=== PATIENT | female | born 1990 | race African-American/Black ===

== ENCOUNTER 2016-03-02 13:08 | Emergency (ER) | payer OTHER ==
[~2016-03-02] VITALS: Ht 185.4 cm; Wt 100.0 kg
[~2016-03-02 13:08] MED LIST: CEPH500C3 PO; PYRI200T4 PO
[2016-03-02 13:09] VITALS: BP 136/78; PULSE 90; RESP 14; TEMP 97.9; O2SAT 99
[2016-03-02 14:26] LABS: BACTERIA, URINE RARE /hpf; BLOOD, URINE NEG (NEG); COMMENT (UR) CULTURE INDICATED; CULTURE IF INDICATED CULTURE INDICATED; GLUCOSE,URINE NEG (NEG); KETONE, URINE NEG (NEG); MUCUS URINE MOD /lpf (OCC); NITRITE,URINE NEG (NEG); PH, URINE 6.5 (5.0-8.5); SQUAMOUS EPITHELIAL CELL URINE 6 /hpf (0-5); URINE COLOR YELLOW (YELLW/STRAW)
[2016-03-02] MEDS ORDERED: CEPH-460 PO (14:44)
--- NOTE | 2016-03-02 14:47 | PD ---
HPI Chief Complaint: Complaint Time Seen by Provider: 14:44 Travel History International Travel<30 days: No Contact w/Intl Traveler<30days: No Traveled to known affect area: No History of Present Illness HPI 25-year-old female presents to the emergency department for evaluation of hematuria. Patient states that this morning when she woke up she had one episode of hematuria. States that since then she's had no blood in her urine. She denies any fever, chills, nausea, vomiting, burning with urination, painful urination, abdominal pain, vaginal discharge, vaginal bleeding. Patient states that she has had urinary tract infections in the past and thinks that she may have another one. Denies , last menstrual period 3 weeks ago. No other complaints. PFSH Past Medical History Medical History: Denies Significant Hx Hx Anticoagulant Therapy: No Cardiovascular Problems: No Chemotherapy: No Cerebrovascular Accident: No Diabetes: No Diminished Hearing: No Respiratory: No Immunizations Current: Yes Tetanus Vaccination: < 5 Years ?: Not LMP: 01/31/16 : 1 Para: 1 Past Surgical History Hysterectomy: No Social History Alcohol Use: No Tobacco Use: No Substance Use: No Allergies-Medications (Allergen,Severity, Reaction): Coded Allergies: No Known Allergies (Verified , 06/29/15) Reported Meds & Prescriptions Reported Meds & Active Scripts Active Pyridium (Phenazopyridine HCl) 200 Mg Tab 200 Mg PO Q8HR PRN Keflex (Cephalexin Monohydrate) 500 Mg Cap 500 Mg PO BID 7 Days Review of Systems Except as stated in HPI: all other systems reviewed are Neg Physical Exam Narrative GENERAL: Well-nourished and well-developed pleasant female patient in no acute distress who is nontoxic appearing. SKIN: Warm and dry. HEAD: Normocephalic and atraumatic. EYES: No injection, drainage, or hyphema noted. PERRLA. EOMI. ENT: No nasal drainage noted. Oropharynx is clear. NECK: Supple and the trachea is midline. CARDIOVASCULAR: Regular rate and rhythm. RESPIRATORY: Breath sounds are equal bilaterally with no accessory muscle use, wheezing, rhonchi, or crackles. GASTROINTESTINAL: Abdomen is soft, non-tender, and nondistended. BACK: Negative CVA tenderness. NEUROLOGICAL: Awake, alert, and oriented. Normal speech and gait. Cranial nerves are grossly intact. Data Data Last Documented VS Vital Signs Date Time Temp Pulse Resp B/P Pulse Ox O2 Delivery O2 Flow Rate FiO2 03/02/16 13:09 97.9 90 14 136/78 99 Orders Urinalysis - C+S If Indicated (03/02/16 13:23) Urine Culture (03/02/16 13:45) Labs Laboratory Tests Test 03/02/16 13:45 Urine Color YELLOW Urine Turbidity HAZY Urine pH 6.5 Urine Specific [place] 1.022 Urine Protein TRACE mg/dL Urine Glucose (UA) NEG mg/dL Urine Ketones NEG mg/dL Urine Occult Blood NEG Urine Nitrite NEG Urine Bilirubin NEG Urine Urobilinogen LESS THAN 2.0 MG/DL Urine Leukocyte Esterase MOD Urine RBC 3 /hpf Urine WBC 14 /hpf Urine WBC Clumps RARE Urine Squamous Epithelial 6 /hpf Cells Urine Bacteria RARE /hpf Urine Mucus MOD /lpf Microscopic Urinalysis Comment CULTURE INDICATED MDM Medical Decision Making Medical Screen Exam Complete: Yes Emergency Medical Condition: Yes Differential Diagnosis Cystitis versus urethritis versus hematuria Narrative Course 25-year-old female presents to the emergency department for evaluation of hematuria. Patient is afebrile, vital signs are stable. Abdominal examination is benign. ED urine test is negative. Urinalysis shows moderate leukocyte esterase, 14 white blood cells, rare arrival blood cell clumps, rare bacteria, moderate mucus. Patient will be treated with Keflex for urinary tract infection. Advised follow -up with her PCP as needed. Patient verbalizes understanding and agreement with treatment plan. Diagnosis Primary Impression: Urinary tract infection Qualified Code: N39.0 - Urinary tract infection with hematuria, site unspecified Referrals: Primary Care Physician Patient Instructions: General Instructions, Urinary Tract Infection in Women ( ED) Additional Instructions: Drink plenty fluids. Take medication as prescribed with food and a full glass of water. Follow-up with your Primary Care Physician. Return to the ED for any acute worsening of symptoms. Med/Other Pt SpecificInfo: Prescription(s) given Scripts Cephalexin (Keflex)500 Mg [id number] Mg PO Q12H 7 Days Ref 0 Prov:Kehinde So MD 03/02/16 Disposition: 01 DISCHARGE HOME Condition: Stable Maria Luisa Mack Mar 02, 2016 14:47
== END 2016-03-02 15:25 | disposition home or self-care (01) ==
LOC: NEPB 13:08
DX: N39.0 Urinary tract infection, site not specified (principal); B96.89 Other specified bacterial agents as the cause of diseases classified elsewhere; R31.9 Hematuria, unspecified
CPT/HCPCS: 81001; 84703; 87086; 99283

== ENCOUNTER 2016-10-08 20:41 | Emergency (ER) | payer MEDICAID, OTHER ==
[~2016-10-08] VITALS: Ht 154.9 cm; Wt 80.0 kg
[~2016-10-08 20:41] MED LIST changes: +CEPH-460 PO
[2016-10-08 20:43] VITALS: BP 121/70; PULSE 73; RESP 16; TEMP 98.5; O2SAT 99
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
== END 2016-10-08 22:48 | disposition left against medical advice (07) ==
LOC: NETRI 20:41
DX: G50.1 Atypical facial pain (principal); V43.62XA Car passenger injured in collision with other type car in traffic accident, initial encounter; W22.12XA Striking against or struck by front passenger side automobile airbag, initial encounter; Y92.414 Local residential or business street as the place of occurrence of the external cause
CPT/HCPCS: 99281

== ENCOUNTER 2016-11-11 00:01 | Emergency (ER) | payer MEDICAID, OTHER ==
[~2016-11-11] VITALS: Ht 185.4 cm; Wt 77.0 kg
[2016-11-11 00:03] VITALS: BP 112/76; PULSE 66; RESP 16; TEMP 97.9; O2SAT 98
--- NOTE | 2016-11-11 00:41 | PD ---
HPI Chief Complaint: Abdominal Pain Time Seen by Provider: 00:26 Travel History International Travel<30 days: No Contact w/Intl Traveler<30days: No Traveled to known affect area: No History of Present Illness HPI 25-year-old female complains of low abdominal pain and vaginal discharge. Patient states the symptoms started 2 days ago. Patient denies any headache. Patient denies any chest pain or shortness of breath. Patient states the pain is sharp pain intermittent pain localized to lower abdomen. Patient states the pain is worsened left low abdomen pelvic area. Patient states that she had aching back pain. Patient denies any fever chills. Patient denies any dysuria or frequency. Patient denies any chance of being . PFSH Past Medical History Hx Anticoagulant Therapy: No Cardiovascular Problems: No Chemotherapy: No Cerebrovascular Accident: No Diabetes: No Diminished Hearing: No Respiratory: No Immunizations Current: Yes Tetanus Vaccination: < 5 Years Influenza Vaccination: No ?: Not LMP: 11/01/16 : 1 Para: 1 Past Surgical History Surgical History: No Previous Surgery Cholecystectomy: Yes Hysterectomy: No Social History Alcohol Use: No Tobacco Use: No Substance Use: No (weed) Allergies-Medications (Allergen,Severity, Reaction): Coded Allergies: No Known Allergies (Verified , 11/11/16) Reported Meds & Prescriptions Reported Meds & Active Scripts Active No Active Prescriptions or Reported Medications Review of Systems General / Constitutional: No: Fever Eyes: No: Visual changes HENT: No: Headaches Cardiovascular: No: Chest Pain or Discomfort Respiratory: No: Shortness of Breath Gastrointestinal: Positive: Abdominal Pain Genitourinary: Positive: Discharge, No: Dysuria Musculoskeletal: No: Pain Skin: No Rash Neurologic: No: Weakness Psychiatric: No: Depression Endocrine: No: Polydipsia Hematologic/Lymphatic: No: Easy Bruising Physical Exam Narrative GENERAL: Well-nourished, well-developed patient. SKIN: Focused skin assessment warm/dry. HEAD: Normocephalic. EYES: No scleral icterus. No injection or drainage. NECK: Supple, trachea midline. No JVD or lymphadenopathy. CARDIOVASCULAR: Regular rate and rhythm without murmurs, gallops, or rubs. RESPIRATORY: Breath sounds equal bilaterally. No accessory muscle use. GASTROINTESTINAL: Abdomen soft, nondistended. Patient has mild tenderness on palpation lower abdomen. No rebound tenderness. No mass. MUSCULOSKELETAL: No cyanosis, or edema. BACK: Nontender without obvious deformity. No CVA tenderness. PROGRESSIVE CARE UNIT REGISTERED NURSE exam: Data Data Last Documented VS Vital Signs Date Time Temp Pulse Resp B/P (MAP) Pulse Ox O2 Delivery O2 Flow Rate FiO2 11/11/16 00:12 18 11/11/16 00:03 97.9 66 112/76 (88) 98 Room Air Orders Orders Complete Blood Count With Diff (11/11/16 00:35) Comprehensive Metabolic Panel (11/11/16 00:35) Gc And Chlamydia Pcr (11/11/16 00:35) Wet Prep Profile (11/11/16 00:35) Urinalysis - C+S If Indicated (11/11/16 00:35) Ed Urine Pregnancytest Poc (11/11/16 00:35) Iv Access Insert/Monitor (11/11/16 00:35) Labs Laboratory Tests Test 11/11/16 00:55 11/11/16 01:03 White Blood Count 5.4 TH/MM3 Red Blood Count 4.06 MIL/MM3 Hemoglobin 11.6 GM/DL Hematocrit 35.8 % Mean Corpuscular Volume 88.1 FL Mean Corpuscular Hemoglobin 28.6 PG Mean Corpuscular Hemoglobin Concent 32.4 % Red Cell Distribution Width 14.3 % Platelet Count 324 TH/MM3 Mean Platelet Volume 9.8 FL Neutrophils (%) (Auto) 29.2 % Lymphocytes (%) (Auto) 51.2 % Monocytes (%) (Auto) 9.2 % Eosinophils (%) (Auto) 9.2 % Basophils (%) (Auto) 1.2 % Neutrophils # (Auto) 1.6 TH/MM3 Lymphocytes # (Auto) 2.8 TH/MM3 Monocytes # (Auto) 0.5 TH/MM3 Eosinophils # (Auto) 0.5 TH/MM3 Basophils # (Auto) 0.1 TH/MM3 CBC Comment DIFF FINAL Differential Comment Urine Color YELLOW Urine Turbidity HAZY Urine pH 6.0 Urine Specific [place] 1.050 Urine Protein 30 mg/dL Urine Glucose (UA) NEG mg/dL Urine Ketones TRACE mg/dL Urine Occult Blood NEG Urine Nitrite NEG Urine Bilirubin NEG Urine Urobilinogen 4.0 MG/DL Urine Leukocyte Esterase NEG Urine RBC LESS THAN 1 /hpf Urine WBC 1 /hpf Urine Squamous Epithelial Cells 3 /hpf Urine Amorphous Sediment RARE Urine Mucus MANY /lpf Microscopic Urinalysis Comment CULT NOT INDICATED MDM Medical Decision Making Medical Screen Exam Complete: Yes Emergency Medical Condition: Yes Interpretation(s) 1:37 AM. CBC with WBC 5.4. 51 lymphocyte. UA negative for WBC. Differential Diagnosis Differential diagnosis including UTI, pyelonephritis, colitis, ovarian cyst, ovarian torsion, ectopic , threatened AB, cervicitis, PID. Narrative Course 25-year-old female with low abdominal pain with vaginal discharge. Rocephin 1 g IV given. Zithromax 1 g by mouth given. Diagnosis Primary Impression: Cervicitis Patient Instructions: General Instructions Additional Instructions: Doxycycline as directed. Motrin as needed for pain. Follow-up with personal physician. Return if persistent problem or worse. Med/Other Pt SpecificInfo: Prescription(s) given Scripts Doxycycline Hyclate (Doxycycline Hyclate) 100 Mg Cap 100 MG PO BID for Infection, #14 CAP 0 Refills Prov: Branden Del Castillo MD 11/11/16 Ibuprofen (Ibuprofen) 600 Mg Tab 600 MG PO Q8HR Y for PAIN, #30 TAB 0 Refills Prov: Branden Del Castillo MD 11/11/16 Disposition: 01 DISCHARGE HOME Condition: Stable Branden Del Castillo MD Nov 11, 2016 00:41
[2016-11-11 01:13] LABS: AUTOMATED NEUTROPHIL # 1.6 TH/MM3 (1.8-7.7); BASOPHIL # 0.1 TH/MM3 (0-0.2); BASOPHIL % 1.2 % (0.0-2.0); EOSINOPHIL # 0.5 TH/MM3 (0-0.4); EOSINOPHIL % 9.2 % (0.0-4.0); HEMATOCRIT 35.8 % (35.0-46.0); HEMO FLAGS DIFF FINAL; LYMPH % 51.2 % (9.0-44.0); LYMPHOCYTE # 2.8 TH/MM3 (1.0-4.8); MEAN CELL VOLUME 88.1 FL (80.0-100.0); MEAN CORPUSCULAR HEMOGLOBIN 28.6 PG (27.0-34.0); MEAN CORPUSCULAR HGB CONC 32.4 % (32.0-36.0); MONO % 9.2 % (0.0-8.0); NEUT % 29.2 % (16.0-70.0); PLATELET COUNT 324 TH/MM3 (150-450); RED BLOOD COUNT 4.06 MIL/MM3 (4.00-5.30); RED CELL DISTRIBUTION WIDTH 14.3 % (11.6-17.2); WHITE BLOOD COUNT 5.4 TH/MM3 (4.0-11.0)
[2016-11-11 01:20] LABS: BLOOD, URINE NEG (NEG); COMMENT (UR) CULT NOT INDICATED; CULTURE IF INDICATED CULT NOT INDICATED; GLUCOSE,URINE NEG (NEG); KETONE, URINE TRACE mg/dL (NEG); MUCUS URINE MANY /lpf (OCC); NITRITE,URINE NEG (NEG); SQUAMOUS EPITHELIAL CELL URINE 3 /hpf (0-5); URINE COLOR YELLOW (YELLW/STRAW)
[2016-11-11 01:39] LABS: ALT (GPT) 18 U/L (10-53); ANION GAP 7 MEQ/L (5-15); AST (GOT) 14 U/L (15-37); BICARBONATE 28.5 MEQ/L (21.0-32.0); BLOOD UREA NITROGEN 11 MG/DL (7-18); CHLORIDE 106 MEQ/L (98-107); GLOMERULAR FILTRATION RATE 90 ML/MIN (>89); POTASSIUM 3.4 MEQ/L (3.5-5.1); SODIUM (NA) 141 MEQ/L (136-145)
[2016-11-11] MEDS ORDERED: DOXY100C PO (01:40)
[2016-11-11] MEDS ORDERED: IBUP-232 PO (01:40)
[2016-11-11 01:41] LABS: ALKALINE PHOSPHATASE 48 U/L (45-117); TOTAL BILIRUBIN ADULT 0.2 MG/DL (0.2-1.0)
[2016-11-11] MEDS ORDERED: AZITHROMYCIN PWD FOR SUSP 1 GM PACKET PO ONE (01:45)
[2016-11-11] MEDS ORDERED: cefTRIAXone INJ 1,000 MG in SODIUM CHLORIDE 0.9% INJ 100 ML IV ONE (01:45)
[2016-11-11 03:29] LABS: CHLAMYDIA PCR NOT DETECTED (NOT DETECT); NEISSERIA PCR NOT DETECTED (NOT DETECT)
== END 2016-11-11 03:39 | disposition home or self-care (01) ==
LOC: NEPC 00:01
DX: N72 Inflammatory disease of cervix uteri (principal)
CPT/HCPCS: 80053; 81001; 84703; 85025; 87210; 87491; 87591; 96374; 99284; J0696

== ENCOUNTER 2017-03-16 14:13 | Emergency (ER) | payer MEDICAID ==
[~2017-03-16] VITALS: Ht 185.4 cm; Wt 74.0 kg
[~2017-03-16 14:13] MED LIST changes: -CEPH-460 PO; -CEPH500C3 PO; +DOXY100C PO; +IBUP-232 PO; -PYRI200T4 PO
[2017-03-16 14:15] VITALS: BP 125/68; PULSE 75; RESP 12; TEMP 98.7; O2SAT 99
== END 2017-03-16 17:17 | disposition left against medical advice (07) ==
LOC: NED 14:13
DX: R39.9 Unspecified symptoms and signs involving the genitourinary system (principal)
CPT/HCPCS: 99281

== ENCOUNTER 2017-08-04 18:17 | Emergency (ER) | payer MEDICAID ==
[~2017-08-04] VITALS: Ht 185.4 cm; Wt 70.0 kg
[2017-08-04 18:25] VITALS: BP 128/86; PULSE 79; RESP 16; TEMP 98.7; O2SAT 100
[2017-08-04 22:25] LABS: BACTERIA, URINE RARE /hpf; BILIRUBIN, URINE NEG (NEG); BLOOD, URINE NEG (NEG); GLUCOSE,URINE NEG (NEG); KETONE, URINE NEG (NEG); MUCUS URINE FEW /lpf (OCC); NITRITE,URINE NEG (NEG); SQUAMOUS EPITHELIAL CELL URINE <1 /hpf (0-5); URINE COLOR YELLOW (YELLW/STRAW); URINE LEUKOCYTE ESTERASE TRACE (NEG); WHITE BLOOD CELL CLUMPS RARE
--- NOTE | 2017-08-04 23:03 | PD ---
HPI Chief Complaint: Executive Admin Problem/Complaint Time Seen by Provider: 21:31 Travel History International Travel<30 days: No Contact w/Intl Traveler<30days: No Traveled to known affect area: No History of Present Illness HPI Is a 26-year-old woman who presents to the emergency department complaining of lower abdominal pain for the past 3 days of blood in the urine frequency and some vaginal discharge. She was just discharged from residential. She reports that while in residential she was treated for chlamydia. She states that she had resolution of her vaginal discharge while she was being treated with an GERD afterwards. She was in residential for 60 days. She has not been sexually active in residential, or since getting out. She was sexually active one male partner only, he has no symptoms of far she knows. Last menstrual period was July 14. She otherwise had been feeling well and healthy History Past Medical History Medical History: Denies Significant Hx LMP: 07/14/17 : 1 Para: 1 Social History Alcohol Use: No Tobacco Use: No Allergies-Medications (Allergen,Severity, Reaction): Coded Allergies: No Known Allergies (Verified Adverse Reaction, Unknown, 03/16/17) Reported Meds & Prescriptions Reported Meds & Active Scripts Active Doxycycline Hyclate 100 Mg Cap 100 Mg PO BID Ibuprofen 600 Mg Tab 600 Mg PO Q8HR PRN Review of Systems Except as stated in HPI: all other systems reviewed are Neg Physical Exam Narrative GENERAL: 26-year-old woman, no acute distress. SKIN: Focused skin assessment warm/dry. HEAD: Atraumatic. Normocephalic. EYES: Pupils equal and round. No scleral icterus. No injection or drainage. ENT: No nasal bleeding or discharge. Mucous membranes pink and moist. NECK: Trachea midline. No JVD. CARDIOVASCULAR: Regular rate and rhythm. No murmur appreciated. RESPIRATORY: No accessory muscle use. Clear to auscultation. Breath sounds equal bilaterally. GASTROINTESTINAL: Abdomen soft, non-tender, nondistended. Hepatic and splenic margins not palpable. MUSCULOSKELETAL: No obvious deformities. No clubbing. No cyanosis. No edema. NEUROLOGICAL: Awake and alert. No obvious cranial nerve deficits. Motor grossly within normal limits. Normal speech. : Normal external female genitalia. Scant vaginal discharge. Cervix has several yellowish nodules that are difficult to completely exclude malignancy. No blood. On bimanual exam there is no palpable uterine enlargement or adnexal masses. No cervical motion tenderness. Data Data Last Documented VS Vital Signs Date Time Temp Pulse Resp B/P (MAP) Pulse Ox O2 Delivery O2 Flow Rate FiO2 08/04/17 18:25 98.7 79 16 128/86 (100) 100 Orders Orders Gc And Chlamydia Pcr (08/04/17 21:57) Wet Prep Profile (08/04/17 21:57) Ua Includes Microscopic (08/04/17 21:57) Ed Urine Pregnancytest Poc (08/04/17 21:57) Labs Laboratory Tests Test 08/04/17 21:45 08/04/17 22:55 Urine Color YELLOW Urine Turbidity CLEAR Urine pH 6.0 Urine Specific [place] 1.027 Urine Protein NEG mg/dL Urine Glucose (UA) NEG mg/dL Urine Ketones NEG mg/dL Urine Occult Blood NEG Urine Nitrite NEG Urine Bilirubin NEG Urine Urobilinogen 2.0 mg/dL Urine Leukocyte Esterase TRACE Urine RBC 1 /hpf Urine WBC 9 /hpf Urine WBC Clumps RARE Urine Squamous Epithelial Cells <1 /hpf Urine Bacteria RARE /hpf Urine Mucus FEW /lpf Clue Cells (Wet Prep) PRESENT Vaginal Trichomonas (Wet Prep) NONE SEEN Vaginal Yeast (Wet Prep) NONE SEEN MDM Medical Decision Making Medical Screen Exam Complete: Yes Emergency Medical Condition: Yes Interpretation(s) Wet prep positive for clue cells UA with trace pyuria Differential Diagnosis Cervicitis, vaginitis, DVT, UTI, other Narrative Course Medical decision making INITIAL: Is a 26-year-old woman who presents to the emergency department with lower abdominal discomfort dysuria and some vaginal discharge. Recently treated for STDs. Very benign exam with the exception of possibly some cervical cysts or nodules. She does need further evaluation to rule out more discussed this explicitly with her. Will check urine, will check wet prep. Recommend follow-up with [employer]. I do not recommend empiric treatment for STI's at this point as she was just treated. FINAL: She has clue cells I think BV most accurate explains her symptoms. She has some trace pyuria. I do not think she has a UTI. Cultures pending. Recommend close follow-up with [facility] for repeat cervical exam. Will treat for BV. Diagnosis Primary Impression: Bacterial vaginosis Additional Impression: Cervix abnormality Referrals: [facility] call for appointment Additional Instructions: Take antibiotics as prescribed for bacterial vaginosis. Follow-up with [facility] for repeat evaluation. Return to the emergency department for any new or worsening symptoms. Med/Other Pt SpecificInfo: Prescription(s) given Scripts Metronidazole (Metronidazole) 500 Mg Tab 500 MG PO TID for Infection for 7 Days, TAB 0 Refills Prov: Tae Stanton MD 08/04/17 Disposition: 01 DISCHARGE HOME Condition: Stable Tae Stanton MD Aug 04, 2017 23:03
[2017-08-04] MEDS ORDERED: METR1TAB76 PO (23:23)
== END 2017-08-04 23:44 | disposition home or self-care (01) ==
LOC: NEPD 18:17
DX: N76.0 Acute vaginitis (principal); N88.8 Other specified noninflammatory disorders of cervix uteri; R31.9 Hematuria, unspecified; R35.0 Frequency of micturition
CPT/HCPCS: 81001; 84703; 87210; 87491; 87591; 99283